=== PATIENT | female | born 1985 | race Caucasian/White ===

== ENCOUNTER 2017-03-02 04:25 | Inpatient (IN) | payer OTHER ==
[2017-03-02] MEDS ORDERED: OXYTOCIN 10 UNIT/ML 1 ML VIAL IM PRN (04:40)
[2017-03-02] MEDS ORDERED: LIDOCAINE 1% (PF) 10 MG/ML (30 ML SDV) SQ PRN (04:40)
[2017-03-02] MEDS ORDERED: METHYLERGONOVINE 0.2 MG/ML 1 ML AMP IM PRN (04:40)
[2017-03-02] MEDS ORDERED: CARBOPROST TROMETHAMINE 250 MCG/ML 1 ML AMP IM PRN (04:40)
[2017-03-02] MEDS ORDERED: TERBUTALINE 1 MG/ML VIAL SQ PRN (04:40)
[2017-03-02] MEDS ORDERED: LACTATED RINGERS 1,000 ML IV SCH (04:45)
[2017-03-02] MEDS ORDERED: diphenhydrAMINE 25 MG CAP PO PRN (05:04)
[2017-03-02] MEDS ORDERED: diphenhydrAMINE 50 MG/ML 1 ML VIAL IVP PRN (05:04)
[2017-03-02] MEDS ORDERED: BENZOCAINE SPRAY 57GM TOPICAL PRN (05:04)
[2017-03-02] MEDS ORDERED: ZOLPIDEM 5 MG TAB PO PRN (05:04)
[2017-03-02] MEDS ORDERED: HYDROCORTISONE 2.5% RECTAL CREAM 30 GM TUBE RECTAL PRN (05:04)
[2017-03-02] MEDS ORDERED: Acetaminophen-Codeine 300-30mg TAB PO PRN ×2 (05:04)
[2017-03-02] MEDS ORDERED: WITCH HAZEL 1 EACH MED..PAD TOPICAL PRN (05:04)
[2017-03-02] MEDS ORDERED: LANOLIN CREAM 5 GM TUBE TOPICAL PRN (05:04)
[2017-03-02] MEDS ORDERED: BISACODYL 10 MG SUPP RECTAL PRN (05:04)
[2017-03-02] MEDS ORDERED: SIMETHICONE 80 MG CHEWABLE PO PRN (05:04)
[2017-03-02 05:08] LABS: Basophils # (A) 0.1 k/uL (0-0.2); Basophils % (A) 0 %; CH 28.1; CHCM 31.5; Eosinophils # (A) 0.1 k/uL (0-0.7); Eosinophils % (A) 1 %; HCT 34.8 % (34.0-46.0); HGB 10.9 gm/dL (11.4-16.0); Hypochromasia Slight; Luc # (Auto) 0.39; Luc % (Auto) 2; Lymphocytes # (A) 2.9 k/uL (1.0-4.8); Lymphocytes % (A) 15 %; MCH 28.1 pg (25.0-35.0); MCHC 31.4 g/dL (31.0-37.0); MCV 89.6 fL (80.0-100.0); Mean Platelet Volume 7.7; Monocytes # (A) 0.5 k/uL (0-1.0); Monocytes % (A) 3 %; Neutrophils # (A) 14.9 k/uL (1.3-7.7); Neutrophils % (A) 79 %; RBC 3.88 m/uL (3.80-5.40); RDW 15.8 % (11.5-15.5); WBC 18.9 k/uL (3.8-10.6); WBC (Perox) 19.59
--- NOTE | 2017-03-02 05:14 | P.HPOB ---
History of Present Illness H&P Date: 03/02/17 Chief Complaint: Contractions, no care This patient is a 32-year-old 10 para 9 female with unknown last menstrual period and unknown gestational age who is transferred from [facility] complaints of and contractions. I was contacted by the emergency physician at [facility] stating that the patient presented with complaints of and contractions. Patient states to me that she has not had any care and "did not know she was ". This is her 10th and her other pregnancies were all vaginal deliveries except the last one which she said she had a which sounds like for breech presentation. Patient denies any significant past medical history other than tobacco use. Review of Systems Constitutional: Denies chills, Denies fever Ears, nose, mouth and throat: Denies headache, Denies sore throat Cardiovascular: Denies chest pain, Denies shortness of breath Respiratory: Denies cough Gastrointestinal: Denies abdominal pain, Denies diarrhea, Denies nausea, Denies vomiting Genitourinary: Reports Menstruation: Reports amenorrhea Musculoskeletal: Denies myalgias Past Medical History Past Medical History: No Reported History Additional Past Medical History / Comment(s): She states she's had 8 spontaneous vaginal deliveries and her most recent she had a History of Any Multi-Drug Resistant Organisms: None Reported Past Surgical History: Section Past Anesthesia/Blood Transfusion Reactions: No Reported Reaction Past Psychological History: No Psychological Hx Reported Smoking Status: Current every day smoker Past Alcohol Use History: None Reported Past Drug Use History: None Reported Medications and Allergies Allergies Allergy/AdvReac Type Severity Reaction Status Date / Time codeine Allergy Unknown Verified 06/10/15 14:23 Exam - Vital Signs Vital signs: Intake and Output 03/01/17 03/01/17 03/02/17 14:59 22:59 06:59 Other: Weight 81.647 kg Patient Weight 03/02/17 06:59 Weight 81.647 kg - OBG Physical Exam Abdomen: bowel sounds normal, no diffuse tenderness, no bruit present, no guarding noted, no hepatomegaly, no splenomegaly, no mass Vulva: both: normal Vagina: normal moisture, no discharge Cervix: Cervix is completely dilated with a vertex presenting part. Uterus: enlarged (Fundal height approximately 34 weeks' size) Assessment and Plan (1) No care in current in third trimester Narrative/Plan: This is a 32-year-old 10 para 9 female unknown gestational age and advanced active labor. His had a previous section for what appears to be breech. heart tones are reassuring at this time. It is to check a panel, urine drug screen, and anticipate vaginal delivery soon. We did call the nurse senior graphic designer and mercerizer machine operator in for delivery due to unknown gestational age. Status: Acute (2) Previous delivery affecting Status: Acute
[2017-03-02] MEDS ORDERED: OXYTOCIN 20 UNITS/1000 ML NS 1,000 ML IV SCH (05:15)
--- NOTE | 2017-03-02 05:16 | P.PROBDLV ---
Vaginal Delivery Note - . Vaginal Delivery Note: Normal spontaneous vaginal delivery viable female infant Apgars 8 and 9 delivery time is 0442 hours (vaginal after section). Please see dictated H&P for intimate details of this patient's admission. Brief summary is a pleasant 32-year-old 10 para 9 female known gestational age admitted from another hospital in advanced active labor. Patient's complete dilated on admission. It to the perineum. Posterior perineum was supported and we have controlled delivery of 's head straight occiput posterior. Mouth and nares are bulb suctioned. There is no evidence of a nuchal cord. We did have spontaneous delivery of the shoulders and rest this infant's body without any effort. This is a vigorous viable female infant Apgars are 8 and 9. Infant has spontaneous respirations and good cry and grossly appears normal. It is probably close to near term. After delivery of the infant the umbilical cords doubly clamped and cut. Placenta spontaneously delivered intact. Inspection of perineum shows a first-degree small laceration I put a interrupted [id number] 3-0 Vicryl suture and. Good reapproximation is noted. Estimated blood loss is 100 mL. There are no complications. All counts correct 3.
[2017-03-02 05:19] LABS: Appearance,Urine Cloudy (Clear); Bacteria,Urine Many /hpf; Bilirubin,Urine Negative (Negative); Glucose,Urine (UA) Negative (Negative); Ketones,Urine 1+ (Negative); Leukocyte Esterase,Urine Large (Negative); Mucus,Urine Many /hpf; Nitrite,Urine Positive (Negative); Protein,Urine 1+ (Negative); RBC,Urine 21 /hpf (0-5); Specific Gravity,Urine 1.015 (1.001-1.035); UA Billing (MACRO vs. MICRO) MICRO; Urobilinogen,Urine <2.0 mg/dL (<2.0); WBC,Urine >182 /hpf (0-5)
[2017-03-02 05:23] LABS: Glucose 125 mg/dL (74-99)
[2017-03-02 05:55] LABS: Hepatitis B Surface Ag Index 0.06
[2017-03-02] MEDS: IBUPROFEN 600 MG TAB PO PRN ×3 (06:27→21:28)
[2017-03-02] MEDS: SENNOSIDES-DOCUSATE SODIUM 1 EACH TAB PO SCH ×2 (08:48→19:28)
[2017-03-02] MEDS: ACETAMINOPHEN TAB 325 MG TAB PO PRN ×2 (08:49→19:28)
[2017-03-02 14:28] VITALS: RESP 16
[2017-03-02] MEDS ORDERED: HYDROcodone/APAP 5-325MG 1 EACH TAB PO PRN ×2 (21:33)
[2017-03-03] MEDS: IBUPROFEN 600 MG TAB PO PRN (06:27)
[2017-03-03 08:22] VITALS: BP 118/79; PULSE 71; TEMP 98
[2017-03-05 04:24] LABS: HIV-1/HIV-2 Ab Screen NONREAC (NON REAC)
--- NOTE | 2017-03-14 10:01 | P.DS ---
Providers Date of admission: 03/02/17 04:34 Expected date of discharge: 03/03/17 Attending physician: Sebastian Diaz Primary care physician: Sebastian Diaz [facility] Course: Shanice did very well . On day 1 she requests discharged home. She was where the baby would not be ready to go home for several days. Her vital signs were stable and she was afebrile. Heart was regular, lungs were clear, extremities were without pain. Prescriptions were provided as needed. Her abdomen was noted to be soft uterus is firm and lochia was reported to be light. We'll plan discharged home today she'll follow up with Dr. 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 All other questions were answered for her prior to her discharge and she is stable for discharge at this time. Patient Condition at Discharge: Good Plan - Discharge Summary New Discharge Prescriptions: New HYDROcodone/APAP 5-325MG [[place] 5-325] 1 tab PO Q4HR PRN #30 tab PRN Reason: Pain Ibuprofen [Motrin] 600 mg PO Q6HR PRN #30 tab PRN Reason: Pain No Action Ciprofloxacin HCl [Cipro] 500 mg PO Q12HR #14 tablet Discharge Medication List Ciprofloxacin HCl [Cipro] 500 mg PO Q12HR #14 tablet 06/10/15 [Rx] HYDROcodone/APAP 5-325MG [[place] 5-325] 1 tab PO Q4HR PRN #30 tab 03/03/17 [Rx] Ibuprofen [Motrin] 600 mg PO Q6HR PRN #30 tab 03/03/17 [Rx] Follow up Appointment(s)/Referral(s): Johnson Joshi DO [Doctor of Osteopathic Medicine] - As Needed Sebastian Diaz MD [Primary Care Provider] - 6 Weeks Activity/Diet/Wound Care/Special Instructions: Shanice is doing very well day 1. She is requesting discharge home today. Her vital signs are stable and afebrile. Heart regular, lungs clear, extremity without pain. All questions are answered for her prior to discharge. Prescriptions for Troy and Motrin are provided at her request. She will follow up with Dr. Diaz in 6 weeks. Otherwise she have any other issue she will notify our office. Discharge instructions thoroughly reviewed. Stable for discharge this time. Discharge Disposition: HOME SELF-CARE
== END 2017-03-03 13:00 | disposition home or self-care (01) | DRG 775 ==
LOC: FBPOP 04:25 → 4FBP 04:34
PROVIDERS: ADMIT Obstetrics & Gynecology; ATTEND Obstetrics & Gynecology
PROC: 10E0XZZ Delivery of Products of Conception, External Approach (ICD-10-PCS; principal; 2017-03-02)
DX: O34.211 Maternal care for low transverse scar from previous cesarean delivery (principal); F17.200 Nicotine dependence, unspecified, uncomplicated; O99.334 Smoking (tobacco) complicating childbirth; Z37.0 Single live birth; Z3A.00 Weeks of gestation of pregnancy not specified
CPT/HCPCS: 80306; 81001; 82947; 85025; 86762; 86850; 86900; 86901; 87340; 87389; 88307

== ENCOUNTER 2018-04-13 15:12 | Emergency (ER) | payer OTHER ==
--- NOTE | 2018-04-13 15:27 | ED ---
General Adult HPI - General Stated complaint: Complications Time Seen by Provider: 04/13/18 15:25 - History of Present Illness Initial comments: Distal is a 33-year-old G12P(10)01(10) female currently who presents to the emergency department for evaluation of abdominal discomfort. Patient reports that she gave one year ago, she had intermittent periods after that but was told that due to her depression, anxiety and medication she may not have regular periods so she had not ever checked a test. She states that she realized 3 weeks ago that she had not had a period since December at which time she did take a test. Patient states she took one test was negative and a week later took another which was positive. She has not established any OB care. Patient reports that she has been working every day and not able to follow up with OB yet. She states that yesterday she noticed some leakage of clear fluid from her vagina, she thought that this was just related to the discharge. She reports that throughout the day today she's had significant pressure in her lower abdomen. She reports that she 's been feeling like she needs to urinate but can't. She reports today she was at work when she began feeling pressure in her abdomen. She then had severe stabbing pain that caused her to double over. At that time 911 was called for transfer to the ER. She reports she still has some mild lower abdominal pressure but no significant pain upon initial evaluation. - Related Data Previous Rx's Medication Instructions Recorded Ciprofloxacin HCl [Cipro] 500 mg PO Q12HR #14 tablet 06/10/15 HYDROcodone/APAP 5-325MG [[place] 1 tab PO Q4HR PRN #30 tab 03/03/17 5-325] Ibuprofen [Motrin] 600 mg PO Q6HR PRN #30 tab 03/03/17 Allergies Allergy/AdvReac Type Severity Reaction Status Date / Time codeine Allergy Rash/Hives Verified 04/13/18 15:36 Review of Systems ROS Statement: Those systems with pertinent positive or pertinent negative responses have been documented in the HPI. ROS Other: All systems not noted in ROS Statement are negative. Constitutional: Denies: fever Eyes: Denies: vision change ENT: Denies: throat pain Respiratory: Denies: cough Cardiovascular: Denies: chest pain Endocrine: Denies: fatigue Gastrointestinal: Reports: abdominal pain, constipation (Last bowel movement. 5 days ago). Denies: nausea, vomiting, diarrhea Genitourinary: Reports: urgency, frequency, discharge, abnormal menses. Denies : dysuria Musculoskeletal: Denies: back pain Skin: Denies: rash Neurological: Denies: headache Psychiatric: Reports: anxiety, depression Hematological/Lymphatic: Denies: easy bleeding, easy bruising Past Medical History Past Medical History: No Reported History Additional Past Medical History / Comment(s): She states she's had 8 spontaneous vaginal deliveries and her most recent she had a History of Any Multi-Drug Resistant Organisms: None Reported Past Surgical History: Section Past Anesthesia/Blood Transfusion Reactions: No Reported Reaction Past Psychological History: No Psychological Hx Reported Smoking Status: Current every day smoker Past Alcohol Use History: None Reported Past Drug Use History: None Reported - Past Family History Mother Family Medical History: No Reported History General Exam Limitations: no limitations General appearance: alert, in no apparent distress, other (Gravid abdomen) Head exam: Present: atraumatic, normocephalic Eye exam: Present: normal appearance, PERRL ENT exam: Present: normal exam Neck exam: Present: normal inspection Respiratory exam: Absent: respiratory distress Cardiovascular Exam: Present: regular rate GI/Abdominal exam: Present: other (Gravid abdomen, uterus palpable above the umbilicus) Rectal exam: Present: deferred Extremities exam: Present: full ROM, normal capillary refill Neurological exam: Present: alert, oriented X3 Skin exam: Present: warm, dry Course Vital Signs 04/13/18 15:31 Temperature 98.1 F Pulse Rate 83 Respiratory 16 Rate Blood Pressure 114/64 O2 Sat by Pulse 100 Oximetry Medical Decision Making - Medical Decision Making The patient was seen and evaluated, history was obtained from the patient and review of medical record This is the patient's 11 , her last resulted in her giving without being aware she was prior to delivery Patient presents today with lower abdominal pain, on physical exam she has a gravid abdomen. Maternal medicine was paged A bedside ultrasound performed by myself revealed a fetus likely in the late second early third trimester. Fetus was noted to be in the transverse lie. Head was measuring 12 cm on bedside ultrasound. At this time I feel the patient requires further evaluation by maternal medicine on the OB floor. Maternal medicine nurses at the bedside agree. At this time the patient has no urge to push, no contractions. Maternal medicine nurses stated that they will defer vaginal exam until she is on the OB floor. Patient was placed in a wheelchair and transferred to the OB floor. Disposition Clinical Impression: , No care in current in third trimester, Previous delivery affecting Disposition: OTHER INSTITUTION NOT DEFINED Is patient prescribed a controlled substance at d/c from ED?: No Referrals: None,Stated [Primary Care Provider] - 1-2 days - Out of Hospital Transfer - Req. Specs Out of Hospital Transfer - Requested Specifics: Other Non-Acute (Patient transferred to Labor and Delivery in this hospital)
[2018-04-13 15:36] VITALS: BP 114/64; PULSE 83; RESP 16; TEMP 98.1
== END 2018-04-13 15:45 | disposition other institution (70) ==
LOC: EC 15:12
DX: O99.89 Other specified diseases and conditions complicating pregnancy, childbirth and the puerperium (principal); R10.30 Lower abdominal pain, unspecified; O99.333 Smoking (tobacco) complicating pregnancy, third trimester; F17.200 Nicotine dependence, unspecified, uncomplicated; Z3A.00 Weeks of gestation of pregnancy not specified; Z88.5 Allergy status to narcotic agent
CPT/HCPCS: 99284

== ENCOUNTER 2018-04-13 15:47 | Outpatient (CLI) | payer OTHER ==
[2018-04-13 16:57] LABS: Basophils # (A) 0.1 k/uL (0-0.2); Basophils % (A) 0 %; Eosinophils # (A) 0.2 k/uL (0-0.7); Eosinophils % (A) 1 %; HCT 29.4 % (34.0-46.0); HGB 9.7 gm/dL (11.4-16.0); Lymphocytes # (A) 2.5 k/uL (1.0-4.8); Lymphocytes % (A) 17 %; MCH 28.5 pg (25.0-35.0); MCHC 32.9 g/dL (31.0-37.0); MCV 86.8 fL (80.0-100.0); Mean Platelet Volume 7.4; Monocytes # (A) 0.7 k/uL (0-1.0); Monocytes % (A) 4 %; Neutrophils # (A) 11.5 k/uL (1.3-7.7); Neutrophils % (A) 76 %; Platelet Count 499 k/uL (150-450); RBC 3.39 m/uL (3.80-5.40); RDW 15.7 % (11.5-15.5); WBC 15.1 k/uL (3.8-10.6)
[2018-04-13] MEDS ORDERED: BETAMET ACET-BETAMETH SOD PHOS 6 MG/ML VIAL IM SCH (17:00)
[2018-04-13 17:02] LABS: ALT 28 U/L (9-52); AST 18 U/L (14-36); Blood Urea Nitrogen 8 mg/dL (7-17); Glucose 90 mg/dL (74-99); LDH 416 U/L (313-618); Uric Acid 5.5 mg/dL (3.7-7.4)
[2018-04-13 17:07] LABS: Appearance,Urine Cloudy (Clear); Bacteria,Urine Many /hpf; Bilirubin,Urine Negative (Negative); Blood,Urine Negative (Negative); Budding Yeast,Urine Rare /hpf; Color,Urine Yellow; Glucose,Urine (UA) Negative (Negative); Ketones,Urine Trace (Negative); Leukocyte Esterase,Urine Large (Negative); Mucus,Urine Many /hpf; Nitrite,Urine Negative (Negative); Protein,Urine 1+ (Negative); RBC,Urine 3 /hpf (0-5); Specific Gravity,Urine 1.016 (1.001-1.035); Squamous Epithelial Cell,Urine 12 /hpf (0-4); WBC,Urine >182 /hpf (0-5)
[2018-04-13] MEDS: LACTATED RINGERS 1,000 ML IV SCH ×2 (17:12→18:16)
[2018-04-13 17:19] LABS: Amphetamine Screen,Urine Not Detected (NotDetected); Barbiturate Screen,Urine Not Detected (NotDetected); Benzodiazepines Screen,Urine Not Detected (NotDetected); Cocaine Screen,Urine Not Detected (NotDetected); Methadone Screen, Urine Not Detected (NotDetected); Opiate Screen,Urine Not Detected (NotDetected); Oxycodone Screen, Urine Not Detected (NotDetected); Phencyclidine Screen,Urine Not Detected (NotDetected); Tricyclic Antidepressant,Urine Not Detected (NotDetected); Urn Cannabinoid Scrn Not Detected (NotDetected)
--- NOTE | 2018-04-13 18:37 | P.HPOB ---
History of Present Illness H&P Date: 04/13/18 Chief Complaint: Abdominal pain, "I did not know I was " This is a 33-year-old white female 12 para 06/24/2010 EDC unknown, sonographic due date today 06/01/2018 at 32-6/7 weeks' gestation. Patient states she has been having unusual abdominal pain over the past several days. 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 She denies fluid leakage or vaginal bleeding. She denies dysuria, hematuria, nausea vomiting, diarrhea. She states she has been having constipation. ALLERGIES include codeine to which she reports fever and hives. Current medications Adderall 30 mg daily, ran a run daily. Past medical history significant for depression and ADHD. Past surgical history significant for section 2014 at 36 weeks gestation for preeclampsia. Social history is significant for one half pack per day tobacco since age 14, patient denies alcohol or drug use. She states she is , here is Claudio. Family history is essentially unremarkable, patient states all of her previous children were healthy. She does not however have custody of any of her children. On exam this is a pleasant white female, 5 foot 4 inches, 195 pounds, vital signs are stable including blood pressure 127/71, pulse 90, 98% O2 sat, temperature 98.1. The general physical exam reveals a pierced nose as well as the shoulder tattoo. Abdomen is soft and nontender. Bedside ultrasound reveals a montes breech vertex with a fundal placenta, normal amniotic fluid index, LENORE 12.6cm, EFWt: 2172 g or 4 lbs. 13 oz., heart rate 165. Reactive NST , baseline 140s with accelerations. Chest is clear in all stone, cardiac exam reveals regular rate and rhythm. Extremities reveal no edema. She has normal reflexes 2+. Cervix is soft, approximate 50% effaced or 2 cm long, 1-1/2 cm dilation the internal os, -2 station, I am feeling a firm presenting part clinically consistent with vertex. Labs include urinalysis revealing trace ketones, +1 protein, 182 WBCs, no nitrates, specimen appears cloudy and to my eye contaminated. WBCs 15, remaining labs within normal limits, blood type O positive, antibody screen negative, remaining lab panel pending. Impression: Patient presents with no care, unaware that she was , at approximately 32-6/7 weeks by sonogram today with a breech montes. She is having irregular mild uterine contractions. Betamethasone has been given IM 1. All labs been drawn. Plan: Continue IV hydration. I've agreed to see the patient in the office if she calls the office on Sunday morning for an appointment. At this point I am reminding her no intercourse, to begin a folic acid vitamin daily, and at this time no work. Increase oral hydration at home. Urine culture is sent. Return to the hospital tomorrow for second betamethasone injection. Review of Systems Constitutional: Reports as per HPI Past Medical History Past Medical History: No Reported History Additional Past Medical History / Comment(s): She states she's had 8 spontaneous vaginal deliveries, she had a [id number] with a full term vaginal delivery tofoll. History of Any Multi-Drug Resistant Organisms: None Reported Past Surgical History: Section Past Anesthesia/Blood Transfusion Reactions: No Reported Reaction Past Psychological History: ADD/ADHD, Anxiety Smoking Status: Current every day smoker - Past Family History Mother Family Medical History: No Reported History Medications and Allergies Home Medications Medication Instructions Recorded Confirmed Type Ciprofloxacin HCl [Cipro] 500 mg PO Q12HR #14 tablet 06/10/15 Rx HYDROcodone/APAP 5-325MG [[place] 1 tab PO Q4HR PRN #30 tab 03/03/17 Rx 5-325] Ibuprofen [Motrin] 600 mg PO Q6HR PRN #30 tab 03/03/17 Rx Allergies Allergy/AdvReac Type Severity Reaction Status Date / Time codeine Allergy Rash/Hives Verified 04/13/18 15:36 Exam Intake and Output 04/13/18 04/13/18 04/13/18 06:59 14:59 22:59 Other: Weight 88.451 kg See dictation please Results Result Diagrams: 04/13/18 16:23 04/13/18 16:28 Abnormal Lab Results - Last 24 Hours (Table) 04/13/18 04/13/18 Range/Units 15:50 16:23 WBC 15.1 H (3.8-10.6) k/uL RBC 3.39 L (3.80-5.40) m/uL Hgb 9.7 L (11.4-16.0) gm/dL Hct 29.4 L (34.0-46.0) % RDW 15.7 H (11.5-15.5) % Plt Count 499 H (150-450) k/uL Neutrophils # 11.5 H (1.3-7.7) k/uL Urine Appearance Cloudy H (Clear) Urine Protein 1+ H (Negative) Urine Ketones Trace H (Negative) Ur Leukocyte Esterase Large H (Negative) Urine WBC >182 H (0-5) /hpf Ur Squamous Epith Cells 12 H (0-4) /hpf Urine Bacteria Many H (None) /hpf Urine Mucus Many H (None) /hpf Urine Yeast (Budding) Rare H (None) /hpf Assessment and Plan Plan: Increase oral fluids at home, no further working until seen in the office on Sunday morning, begin a vitamin with Folic acid daily, stop smoking. Return to the hospital tomorrow for second betamethasone injection. Time with Patient: Greater than 30
--- NOTE | 2018-04-13 20:09 | US ---
EXAMINATION TYPE: US OB >= 14 wk fetus DATE OF EXAM: 04/13/2018 COMPARISON: None CLINICAL HISTORY: unknown gestation. No care, unknown dates TECHNIQUE: Transvaginal (TV) and Transabdominal (TA) GESTATIONAL AGE / DATING Physician Established: Not yet established Dates by LMP: LMP unknown Dates by First Scan: No previous this is first scan Dates by Current Scan: (32 weeks/6 days) EDC: 06/02/2018 SURVEY IUP: Single PLACENTA: Fundal PREVIA: No Previa LENORE: 12.6 cm Normal CERVICAL LENGTH (transvaginal: norm> 2.5cm): 2.8 cm (Supplemental transvaginal imaging performed to verify cervical length.) BIOMETRY PRESENTATION: Breech LIE: Longitudinal BPD: 8.2 cm 32 weeks / 6 days HC: 30.97 cm 34 weeks / 4 days AC: 29.82 cm 33 weeks / 6 days FL: 6.22 cm 32 weeks / 2 days ESTIMATED WEIGHT IN GRAMS: 2172 grams ESTIMATED WEIGHT IN LBS/OZ: 4 lbs. 73 oz. HC/AC: 1.04 Normal FL/AC: 20.85 Normal HEART RATE: 165 bpm RHYTHM: Normal Viable IUP with an BERTHA of 06/02/2018 by this exam. IMPRESSION: Viable intrauterine gestation consistent by Sarva calculation with a 32 week 6 day gestation +/- 1 week expected date of confinement approximately 06/12/2018. heart rate of 165 bpm. Normal rhythm. Follow-up study recommended. MTDD
[2018-04-13 23:54] LABS: HIV AB P24 Non-Reactive (Non-Reactive); HIV P24 AG Non-Reactive (Non-Reactive)
[2018-04-15 13:20] LABS: C. trachomatis,PCR Negative (Neg,Equiv); Chlamydia trachomatis Source Urine; N. gonorrhoeae,PCR Negative (Neg,Equiv); Neisseria Source Urine
== END 2018-04-13 19:10 | disposition home or self-care (01) ==
LOC: FBPOP 15:47
PROVIDERS: ATTEND Obstetrics & Gynecology
DX: O26.893 Other specified pregnancy related conditions, third trimester (principal); R10.9 Unspecified abdominal pain; O99.333 Smoking (tobacco) complicating pregnancy, third trimester; Z3A.32 32 weeks gestation of pregnancy
CPT/HCPCS: 59025; 99214; 96361; 96365; 96372; 84112; 86900; 86901; 86762; 82565; 83615; 82947; 84450; 84460; 84520; 84550; 85025; 86850; 87340; 81001; 87491; 87591; 86780; 80306; 87086; 87390; 76805; 76817; J0702; 87077; 87186

== ENCOUNTER 2018-05-07 21:20 | Outpatient (CLI) | payer OTHER ==
[2018-05-07 23:15] VITALS: BP 129/77; PULSE 100; RESP 20
--- NOTE | 2018-05-31 08:27 | P.MSEPDOC ---
Presenting Problems - Arrival Data Date of Arrival on Unit: 05/07/18 Time of Arrival on Unit: 21:26 Mode of Transport: Wheelchair - Complaint OB-Reason for Admission/Chief Complaint: Possible Onset of Labor Medical History - Information : 12 Para: 10 Number of Living Children: 10 - Gestational Age Gestational Age by BERTHA (wks/days): 36 Weeks and 2 Days - History Complications: Smoker Review of Systems - Review of Systems Constitutional: No problems Breast: No problems ENT: No problems Cardiovascular: No problems Respiratory: No problems Gastrointestinal: No problems Genitourinary: No problems Musculoskeletal: No problems Neurological: No problems Skin: No problems Vital Signs - Pulse Right Supine Brachial Pulse Rate: 100 - Respirations Respiratory Rate: 20 Oxygen Delivery Method: Room Air - Blood Pressure Right Arm Supine Blood Pressure: 129/77 Blood Pressure Mean: 94 Blood Pressure Source: Automatic Cuff Medical Screen Scoring (Pre) - Cervical Exam Dilation: 1-3 cm = 1 Effacement: More than 50% = 2 Membranes: Intact - Uterine Contractions Frequency: > or = 36 weeks =2 Duration: > 40 seconds = 2 - Maternal Vital Signs Maternal Blood Pressure: N/A Signs of Preeclampsia: N/A - Pain Assessment Pain Location and Character: Medial, Abdomen Pain Description: Cramping Pain Frequency: Intermittent Pain Behavior: None Exhibited Pain Aggravating Factors: Contractions - Assessment Baseline FHR: 145 Heart Rate - NICHD Category: Category I (Normal) = 0 NST: Reactive - Total Score Total Score (Pre): 7 Physician Notification (Pre) - Physician Notified Physician Notified Date: 05/07/18 Physician Notified Time: 22:45 Physician/Practitioner Notifed:: Dr Sandhu Spoke With: Dr Sandhu - Notification Comment Comment: Dr Sandhu saw patient at bedside, performed vag exam and gave discharge instructions. Pt has appt tomorrow at 1400 with her. Disposition - Disposition OB Disposition: Physician follow up in office Discharge Date: 05/07/18 Discharge Time: 22:50 I agree with the RN Medical Screening Exam: Yes Risk & Benefit of care provided described in d/c instruction: Yes Diagnosis: FALSE LABOR BEFORE 37 COMPLETED WEEKS OF GEST, THIRD TRI Additional Diagnoses: O47.03
== END 2018-05-07 22:50 | disposition home or self-care (01) ==
LOC: FBPOP 21:20
PROVIDERS: ATTEND Obstetrics & Gynecology
DX: O47.03 False labor before 37 completed weeks of gestation, third trimester (principal); Z3A.36 36 weeks gestation of pregnancy
CPT/HCPCS: 59025; 99213

== ENCOUNTER 2018-05-15 21:35 | Inpatient (IN) | payer OTHER ==
[2018-05-15] MEDS: LACTATED RINGERS 1,000 ML IV SCH ×3 (22:29→23:48)
[2018-05-15] MEDS ORDERED: LIDOCAINE 1% (PF) 10 MG/ML (30 ML SDV) SQ PRN (22:47)
[2018-05-15] MEDS ORDERED: OXYTOCIN 10 UNIT/ML 1 ML VIAL IM PRN (22:47)
[2018-05-15] MEDS ORDERED: TERBUTALINE 1 MG/ML VIAL SQ PRN (22:47)
[2018-05-15] MEDS ORDERED: CARBOPROST TROMETHAMINE 250 MCG/ML 1 ML AMP IM PRN (22:47)
[2018-05-15] MEDS ORDERED: METHYLERGONOVINE 0.2 MG/ML 1 ML AMP IM PRN (22:47)
[2018-05-15 23:07] LABS: Anisocytosis Slight; Basophils # (A) 0.1 k/uL (0-0.2); Basophils % (A) 1 %; Eosinophils # (A) 0.2 k/uL (0-0.7); Eosinophils % (A) 2 %; HCT 32.3 % (34.0-46.0); HGB 10.6 gm/dL (11.4-16.0); Lymphocytes # (A) 2.9 k/uL (1.0-4.8); Lymphocytes % (A) 17 %; MCH 28.6 pg (25.0-35.0); MCHC 32.7 g/dL (31.0-37.0); MCV 87.4 fL (80.0-100.0); Mean Platelet Volume 7.5; Monocytes # (A) 0.8 k/uL (0-1.0); Monocytes % (A) 5 %; Neutrophils # (A) 12.4 k/uL (1.3-7.7); Neutrophils % (A) 75 %; Platelet Count 509 k/uL (150-450); RBC 3.69 m/uL (3.80-5.40); RDW 16.2 % (11.5-15.5); WBC 16.6 k/uL (3.8-10.6)
[2018-05-15] MEDS ORDERED: ROPIVACAINE 100 MG, fentaNYL (PF) 200 MCG in SODIUM CHLORIDE 0.9% 76 ML EPIDURAL ONE (23:35)
--- NOTE | 2018-05-15 23:52 | P.HPOB ---
History of Present Illness H&P Date: 05/15/18 Chief Complaint: 37-3/7 weeks, active labor, previous with successful The patient is a 33-year-old 11 para 0 10 0 10 with reportedly 10 deliveries at approximately 36+ weeks. One delivery was a section after which time she has had a successful vaginal . Her has been complicated by very late care beginning at approximately 34 weeks of gestation. She does have a history of ADD for which she takes Adderall. She also has expressed the desire for tubal ligation and signed consent just recently. Group B strep status is negative. On labor and delivery, she was noted to have spontaneous relatively deep and somewhat prolonged variable decelerations which returned to baseline with good variability between. Currently, all signs are reassuring. Obstetrical history: 11 para 0 10 0 10 with reportedly 10 roughly 36 week deliveries. She has had 8 normal vaginal deliveries, the last of which followed her only , a successful . Current statistics are listed in history present illness. EDC of 06/02/2018 was established by a 34 week ultrasound. Laboratory workup demonstrates a blood type of O+ with a negative antibody screen. Rubella status is immune. The remainder of the laboratory workup was within normal limits aside from a urinary tract infection which was treated. One hour Glucola was not completed and group B strep status is negative. Gynecologic history: Apparently unremarkable with no evidence of history of STDs. Review of Systems Review of systems is confined to history of present illness. Past Medical History Past Medical History: No Reported History Additional Past Medical History / Comment(s): She states she's had 8 spontaneous vaginal deliveries, she had a [id number] with a full term vaginal delivery tofoll. History of Any Multi-Drug Resistant Organisms: None Reported Past Surgical History: Section Past Anesthesia/Blood Transfusion Reactions: No Reported Reaction Smoking Status: Current every day smoker - Past Family History Mother Family Medical History: No Reported History Medications and Allergies Home Medications Medication Instructions Recorded Confirmed Type Pnv No.95/Ferrous Fum/Folic AC 1 each PO DAILY 05/07/18 05/15/18 History [ Multivitamin Tablet] Allergies Allergy/AdvReac Type Severity Reaction Status Date / Time codeine Allergy Rash/Hives Verified 05/15/18 21:44 Exam Vital Signs Temp Pulse Resp BP Pulse Ox 05/15/18 22:16 97.0 F L 102 H 16 130/70 100 Intake and Output 05/15/18 05/15/18 05/16/18 14:59 22:59 06:59 Other: Weight 88.451 kg In general, this is a well-developed, well-nourished white female in no acute distress is epidural catheter has been placed. Her heart has a regular rhythm and rate without murmur. Her lungs are clear to auscultation bilaterally in all stone. Her abdomen is gravid, nondistended, has normal active bowel sounds , is soft, nontender, and without any palpable masses aside from uterine fundus. Her extremities are without any cyanosis, clubbing, or significant edema and are nontender to palpation bilaterally. Digital cervical examination done traits or cervix to be 8 cm dilated, approximately 80-90% effaced, with the vertex in presentation at -2 station. During the cervical examination, cord was palpable adjacent to the head leading me to leave membranes intact and allow the patient to labor down and perhaps even push with the bag of water intact. Results Result Diagrams: 05/15/18 22:20 Abnormal Lab Results - Last 24 Hours (Table) 05/15/18 Range/Units 22:20 WBC 16.6 H (3.8-10.6) k/uL RBC 3.69 L (3.80-5.40) m/uL Hgb 10.6 L (11.4-16.0) gm/dL Hct 32.3 L (34.0-46.0) % RDW 16.2 H (11.5-15.5) % Plt Count 509 H (150-450) k/uL Neutrophils # 12.4 H (1.3-7.7) k/uL Assessment and Plan (1) Active labor at term Current Visit: Yes Status: Acute Code(s): TJJ3329 - SNOMED Code(s): 08219105 (2) Previous delivery affecting Current Visit: Yes Status: Acute Code(s): O34.219 - MATERNAL CARE FOR UNSP TYPE SCAR FROM PREVIOUS DEL SNOMED Code(s): 183010824 Plan: The current findings to represent a significant risk for potential cord prolapse. The operating room will be opened in anticipation of the possibility of emergency . I intend to leave the bag of water intact and allow the patient to labor down and perhaps even push with the bag of water intact as long as heart tones remain reassuring given the fact that she has had 8 previous normal vaginal deliveries. Very close maternal and surveillance will be continued. An epidural catheter has been placed for analgesia.
[2018-05-16 00:08] VITALS: BMI 33.5
[2018-05-16] MEDS ORDERED: OXYTOCIN 20 UNITS/1000 ML NS 1,000 ML IV SCH ×2 (01:15→02:15)
[2018-05-16] MEDS ORDERED: CITRIC ACID-SODIUM CITRATE 15 ML CUP PO ONE (01:19)
[2018-05-16] MEDS ORDERED: ceFAZolin 1,000 MG in DEXTROSE/WATER 1 50ML.BAG IVPB STA (01:26)
[2018-05-16] MEDS ORDERED: ONDANSETRON 4 MG/2 ML VIAL ONE (01:29)
[2018-05-16] MEDS ORDERED: ceFAZolin 1,000 MG VIAL ONE (01:29)
[2018-05-16] MEDS ORDERED: OXYTOCIN 10 UNIT/ML 1 ML VIAL ONE (01:29)
[2018-05-16] MEDS ORDERED: KETOROLAC 30 MG/ML 1 ML VIAL ONE (01:29)
[2018-05-16] MEDS ORDERED: MORPHINE SULFATE (PF) 0.3 MG/0.3 ML SYR ONE (01:29)
[2018-05-16] MEDS ORDERED: NALBUPHINE 10 MG/ML VIAL (10ML MDV) ONE (01:29)
[2018-05-16] MEDS ORDERED: diphenhydrAMINE 50 MG/ML 1 ML VIAL IVP PRN ×3 (01:54→02:11)
[2018-05-16] MEDS ORDERED: MORPHINE SULFATE 4 MG/ML SYRINGE IVP PRN (01:54)
[2018-05-16] MEDS ORDERED: NALOXONE 0.4 MG/ML 1 ML VIAL IV PRN ×2 (01:54→02:11)
[2018-05-16] MEDS ORDERED: ONDANSETRON 4 MG/2 ML VIAL IVP PRN (01:54)
[2018-05-16] MEDS ORDERED: ZOLPIDEM 5 MG TAB PO PRN (02:11)
[2018-05-16] MEDS ORDERED: SIMETHICONE 80 MG CHEWABLE PO PRN (02:11)
[2018-05-16] MEDS ORDERED: ACETAMINOPHEN TAB 325 MG TAB PO PRN (02:11)
[2018-05-16] MEDS ORDERED: diphenhydrAMINE 50 MG CAP PO PRN (02:11)
[2018-05-16] MEDS ORDERED: METOCLOPRAMIDE 5 MG/ML 2 ML VIAL IVP PRN (02:11)
[2018-05-16] MEDS ORDERED: diphenhydrAMINE 25 MG CAP PO PRN (02:11)
--- NOTE | 2018-05-16 02:28 | P.OP ---
Date of Procedure: 05/16/18 Preoperative Diagnosis: #1. 37-3/7 weeks, labor #2. Undesired fertility #3. Grand multiparity #4. intolerance of labor Postoperative Diagnosis: Same Procedure(s) Performed: #1. Repeat low transverse section #2. Intraoperative bilateral tubal occlusion with Filshie clips Anesthesia: epidural Surgeon: Min Mayo Machine Setter Automatic #1: Sebastian Diaz Estimated Blood Loss (ml): 400 IV fluids (ml): 1,400 Urine output (ml): 250 Pathology: other (Placenta) Condition: stable Disposition: floor Operative Findings: Preoperatively, the patient continued to have repetitive deep and prolonged decelerations into the 60s and 70s which recovered to good variability with accelerations. Given her grand multiparity, and despite the palpable umbilical cord adjacent to the baby's head and the membranes intact, we attempted to allow her to labor past the cord so that she could quickly pushed to a normal vaginal delivery. The cord however remained further in front of the head with repetitive decelerations and significant concern was taken for the potential for her significant poor heart tones if rupture of membranes happened spontaneously or otherwise or with any pushing. As result, the patient was taken to the operating room where she was delivered of a viable 6 lbs. 1 oz. baby boy with Apgars of 6 at 1 minute, 6 at 5 minutes, and 6 at 10 minutes. He was taken to the special care nursery for further evaluation. The exact gestational age of the is in some question as EDC was based upon a 34 week ultrasound. The uterus was noted to have an extremely thin lower uterine segment at the site of the previous section with the bladder scarred into it as well. There was a laceration of the uterine incision towards the cervix on the left angle which was safely closed without any evidence of bladder injury. The tubes and ovaries were otherwise normal. The placenta was delivered manually, intact, and grossly normal with a grossly normal three- vessel cord. Consent for tubal ligation had been previously obtained in the office and was verbally taken from the patient both during labor and during the procedure. A Filshie clip was placed across the entire thickness of the isthmic portion of each tube and firmly affixed. Description of Procedure: The patient was prepped and draped in usual fashion after epidural anesthesia was bolused by the anesthesiologist. A Pfannenstiel incision was made through pre-existing scar and extended into the abdominal cavity without difficulty. The bladder peritoneum was noted to be scarred relatively high and the lower uterine segment was extraordinarily thin at the site of a previous section creating a ridge between the upper and lower uterine segments. The bladder peritoneum was elevated, incised, and reflected distally. A 2 cm incision was made in the lower uterine segment just below the ridge to enter the uterus at which time clear fluid was noted. The incision was extended in both directions bluntly. The head was delivered up and through the incision where the nose and mouth were thoroughly suctioned. The remainder of the was delivered onto the field where the cord was doubly clamped, cut, and the infant passed for resuscitative measures with weight and Apgars as noted above. A segment of cord was then doubly clamped, cut, and set aside should cord gases become necessary. The placenta was delivered manually, intact , and grossly normal with a grossly normal three-vessel cord. The uterus was exteriorized and the interior cavity of the uterus swept of any remaining placental or membranous fragments. The margins of the incision were grasped with Alfaro clamps at which time the laceration at the left angle was noted. This was closed continuously with the remainder of the incision with minimal difficulty. The blood at the time of the beginning of the repair was blood-tinged and remained so following the procedure but much more likely from the depth of the head in the pelvis and pressing on the Millan bulb to deliver it. The incision was closed in a single running locking stitch of 0 chromic catgut from margin to margin. The area where the laceration was noted was reinforced with a single [id number]-[id number] stitch of 0 chromic catgut. After reaffirming consented for tubal ligation, a Filshie clip was placed across the isthmic portion of each fallopian tube and firmly affixed approximately 2 cm from the cornu on each side. The posterior cul-de-sac was suctioned with a guard and the uterus replaced within the abdominal cavity. The gutters were swept of any remaining blood, fluid, or clot. The incision was reexamined and found to be hemostatic. The parietal peritoneum and layer of muscles were loosely reapproximated with a xettby-rq-qguex stitch of 0 chromic catgut. The fascia was closed with a single running stitch of 0 Vicryl proceeding from one margin to the other. The subcutaneous tissues were irrigated, made hemostatic with the Bovie, and not reapproximated as there was less than 2 cm of depth. The skin was reapproximated with a running subcuticular stitch of 4-0 Vicryl from margin to margin. There were no complications. All sponge, instrument, and needle counts were correct. Estimated blood loss for the case is a roughly 400 mL. The patient tolerated the procedure well and proceeded to the recovery room in stable condition. Both mother and infant are resting comfortably in recovery of the remains and special care nursery for ongoing evaluation.
[2018-05-16] MEDS: LACTATED RINGERS 1,000 ML IV SCH ×2 (03:38→05:53)
[2018-05-16] MEDS: SENNOSIDES-DOCUSATE SODIUM 1 EACH TAB PO SCH ×2 (07:53→19:34)
[2018-05-16] MEDS: KETOROLAC 30 MG/ML 1 ML VIAL IVP PRN ×3 (07:56→21:19)
[2018-05-16] MEDS: HYDROcodone/APAP 7.5-325MG 1 EACH TAB PO PRN (19:33)
[2018-05-17] MEDS: HYDROcodone/APAP 7.5-325MG 1 EACH TAB PO PRN (02:09)
[2018-05-17] MEDS: KETOROLAC 30 MG/ML 1 ML VIAL IVP PRN (06:03)
[2018-05-17 06:10] LABS: Anisocytosis Slight; Basophils # (A) 0.1 k/uL (0-0.2); Basophils % (A) 0 %; Eosinophils # (A) 0.2 k/uL (0-0.7); Eosinophils % (A) 1 %; HCT 26.1 % (34.0-46.0); Lymphocytes # (A) 2.1 k/uL (1.0-4.8); Lymphocytes % (A) 13 %; MCV 87.6 fL (80.0-100.0); Mean Platelet Volume 7.3; Monocytes # (A) 0.8 k/uL (0-1.0); Monocytes % (A) 5 %; Neutrophils # (A) 13.3 k/uL (1.3-7.7); Neutrophils % (A) 80 %; Platelet Count 383 k/uL (150-450); RBC 2.98 m/uL (3.80-5.40); RDW 16.2 % (11.5-15.5); WBC 16.6 k/uL (3.8-10.6)
[2018-05-17 06:44] LABS: HGB 8.3 gm/dL (11.4-16.0)
--- NOTE | 2018-05-17 06:50 | P.PN ---
Progress Note - Text Progress Note Date: 05/17/18 33-year-old female status post section with Duramorph spinal. Patient doing well no complications. No motor/sensory deficits. No pruritus. VAS 2/ 10. Patient tolerating diet.
--- NOTE | 2018-05-17 07:32 | P.PN ---
Subjective Progress Note Date: 05/17/18 Principal diagnosis: Postoperative day #1 Slept well. Minimal pain. Moderate lochia rubra, no large clots Objective - Vital Signs Vital signs: Vital Signs Temp 97.6 F 05/17/18 00:00 Pulse 88 05/17/18 00:00 Resp 12 05/17/18 06:00 BP 123/63 05/17/18 00:00 Pulse Ox 97 05/17/18 00:00 Intake & Output 05/16/18 05/17/18 05/17/18 18:59 06:59 18:59 Output Total 100 Balance -100 Output: Urine 100 Other: # Voids 1 1 - Constitutional General appearance: Present: average body habitus, cooperative - EENT Eyes: Present: PERRLA ENT: Present: hearing grossly normal - Respiratory Respiratory: bilateral: CTA - Cardiovascular Rhythm: regular - Gastrointestinal Gastrointestinal Comment(s): Incision clean and dry, intact, Steri-Strips applied. Fundus firm, midline, symmetric, 18 week size, nontender General gastrointestinal: Present: normal bowel sounds - Integumentary Integumentary: Present: normal - Neurologic Neurologic: Present: CNII-XII intact - Musculoskeletal Musculoskeletal: Present: gait normal, strength equal bilaterally - Psychiatric Psychiatric: Present: A&O x's 3, appropriate affect - Labs CBC & Chem 7: 05/17/18 05:45 Labs: Abnormal Lab Results - Last 24 Hours (Table) 05/17/18 Range/Units 05:45 WBC 16.6 H (3.8-10.6) k/uL RBC 2.98 L (3.80-5.40) m/uL Hgb 8.3 L D (11.4-16.0) gm/dL Hct 26.1 L (34.0-46.0) % RDW 16.2 H (11.5-15.5) % Neutrophils # 13.3 H (1.3-7.7) k/uL Assessment and Plan Assessment: Postoperative day #1, doing well Plan: Continue postoperative care. Likely discharge home tomorrow. Time with Patient: Less than 30
[2018-05-17] MEDS: HYDROcodone/APAP 5-325MG 1 EACH TAB PO PRN ×3 (09:30→21:58)
[2018-05-17] MEDS: FERROUS SULFATE 325 MG TAB PO SCH (09:39)
[2018-05-17] MEDS: SENNOSIDES-DOCUSATE SODIUM 1 EACH TAB PO SCH (10:25)
[2018-05-17] MEDS: IBUPROFEN 600 MG TAB PO PRN ×2 (12:08→19:51)
[2018-05-18] MEDS: SENNOSIDES-DOCUSATE SODIUM 1 EACH TAB PO SCH ×2 (01:28→07:48)
[2018-05-18] MEDS: IBUPROFEN 600 MG TAB PO PRN (01:28)
[2018-05-18] MEDS: HYDROcodone/APAP 5-325MG 1 EACH TAB PO PRN (05:17)
[2018-05-18] MEDS: HYDROcodone/APAP 7.5-325MG 1 EACH TAB PO PRN ×2 (07:25→10:48)
[2018-05-18] MEDS: FERROUS SULFATE 325 MG TAB PO SCH (08:58)
[2018-05-18 10:49] VITALS: BP 107/68; PULSE 75; RESP 18; TEMP 97.5
--- NOTE | 2018-05-18 11:26 | P.DS ---
Providers Date of admission: 05/15/18 22:47 Expected date of discharge: 05/18/18 Attending physician: Geraldine Sandhu Primary care physician: Stated None - Discharge Diagnosis(es) (1) Active labor at term Current Visit: Yes Status: Acute (2) Family planning Current Visit: Yes Status: Acute (3) intolerance to labor, delivered, current hospitalization Current Visit: Yes Status: Acute (4) Previous delivery affecting Current Visit: Yes Status: Acute (5) S/P section Current Visit: Yes Status: Acute Hospital Course: This is a 33-year-old grand multiparous woman who presented at 37+ weeks gestation in active labor. On findings with advanced cervical dilation were concerning for possible umbilical cord preceding of the descending vertex. There was some nonreassuring status. This incision was therefore made to proceed with a repeat low transverse section. The patient was planning on tubal ligation and this was performed at the time of the repeat C- section with Filshie clips. Please see the operative report for complete details. The patient's postoperative course was entirely unremarkable. By postoperative day #1 she was ambulating and voiding without difficulty and tolerating a general diet. By postoperative day #2 she continued to do well. Vital signs were stable postoperative hemoglobin was normal and her incision appeared well healing. She was therefore discharged home with routine instructions for postoperative care and follow-up Plan - Discharge Summary New Discharge Prescriptions: New HYDROcodone/APAP 5-325MG [[place] 5-325] 1 each PO Q4HR PRN #20 tab PRN Reason: Moderate Pain Ibuprofen [Motrin] 600 mg PO Q6HR PRN #30 tab PRN Reason: Mild Pain Or Fever >= 100.5 No Action Pnv No.95/Ferrous Fum/Folic AC [ Multivitamin Tablet] 1 each PO DAILY Discharge Medication List Pnv No.95/Ferrous Fum/Folic AC [ Multivitamin Tablet] 1 each PO DAILY [History] HYDROcodone/APAP 5-325MG [[place] 5-325] 1 each PO Q4HR PRN #20 tab 05/18/18 [Rx] Ibuprofen [Motrin] 600 mg PO Q6HR PRN #30 tab 05/18/18 [Rx] Follow up Appointment(s)/Referral(s): Geraldine Sandhu MD [STAFF PHYSICIAN] - 2 Weeks Activity/Diet/Wound Care/Special Instructions: Follow-up in 2 weeks after surgery in the office. Call the office with any concerning signs or symptoms including fever greater than 101, severe abdominal pain, heavy vaginal bleeding, signs of wound infection, increased swelling or redness of the lower extremities, signs of depression. No driving for 2 weeks after surgery. No heavy lifting or vigorous activity until reevaluated in the office. No intercourse for 6 weeks after delivery. Discharge Disposition: HOME SELF-CARE
== END 2018-05-18 13:00 | disposition home or self-care (01) | DRG 766 ==
LOC: FBPOP 21:35 → 4FBP 22:47
PROVIDERS: ADMIT Obstetrics & Gynecology; ATTEND Obstetrics & Gynecology
PROC: 0UL70CZ Occlusion of Bilateral Fallopian Tubes with Extraluminal Device, Open Approach (ICD-10-PCS; 2018-05-16)
PROC: 10D00Z1 Extraction of Products of Conception, Low, Open Approach (ICD-10-PCS; principal; 2018-05-16 01:45)
DX: O34.211 Maternal care for low transverse scar from previous cesarean delivery (principal); Z37.0 Single live birth; O99.334 Smoking (tobacco) complicating childbirth; O76 Abnormality in fetal heart rate and rhythm complicating labor and delivery; F17.200 Nicotine dependence, unspecified, uncomplicated; Z30.2 Encounter for sterilization; Z3A.37 37 weeks gestation of pregnancy; F98.8 Other specified behavioral and emotional disorders with onset usually occurring in childhood and adolescence; Z88.5 Allergy status to narcotic agent; O99.344 Other mental disorders complicating childbirth
CPT/HCPCS: 59025; 85025; 86850; 86900; 86901; 88307; 96360; 99214

== ENCOUNTER 2021-11-16 14:24 | Observation (INO) | payer BC, OTHER ==
[2021-11-16 14:30] VITALS: TEMP 98.4
[2021-11-16 14:46] LABS: Glucose,Whole Blood 81 mg/dL (75-99)
--- NOTE | 2021-11-16 14:47 | ED ---
General Adult HPI - General Chief complaint: Neuro Symptoms/Deficit Stated complaint: left arm numbness Time Seen by Provider: 11/16/21 14:36 Source: patient, family, RN notes reviewed Mode of arrival: ambulatory Limitations: no limitations - History of Present Illness Initial comments: Patient is a pleasant 36-year-old female presenting to the emergency department with left arm numbness. Onset was sudden round 10 PM yesterday. Patient did go to sleep around 20 minutes following this. Patient has had some weakness in her arm that has been persistent since that time, around 10:00. Patient states it is difficult to use. Patient denies loss of sensation. No other area of weakness. No history of similar symptoms previous. No history of involvement of the face or leg. No confusion or speech problems. No visual changes.. No fever. No headache. - Related Data Home Medications Medication Instructions Recorded Confirmed No Known Home Medications 11/16/21 11/16/21 Allergies Allergy/AdvReac Type Severity Reaction Status Date / Time codeine Allergy Rash/Hives Verified 11/16/21 15:14 Review of Systems ROS Statement: Those systems with pertinent positive or pertinent negative responses have been documented in the HPI. ROS Other: All systems not noted in ROS Statement are negative. Constitutional: Denies: fever Eyes: Denies: eye pain ENT: Denies: ear pain Respiratory: Denies: cough Cardiovascular: Denies: chest pain Endocrine: Denies: fatigue Gastrointestinal: Denies: abdominal pain Genitourinary: Denies: dysuria Musculoskeletal: Denies: back pain Skin: Denies: rash Neurological: Reports: as per HPI, weakness. Denies: headache Psychiatric: Denies: anxiety Past Medical History Past Medical History: No Reported History Additional Past Medical History / Comment(s): She states she's had 8 spontaneous vaginal deliveries, she had a [id number] with a full term vaginal delivery tofollow. History of Any Multi-Drug Resistant Organisms: None Reported Past Surgical History: Section Past Anesthesia/Blood Transfusion Reactions: No Reported Reaction Past Psychological History: ADD/ADHD, Anxiety Past Alcohol Use History: None Reported Past Drug Use History: None Reported - Past Family History Mother Family Medical History: No Reported History General Exam Limitations: no limitations General appearance: alert, in no apparent distress Head exam: Present: normocephalic Eye exam: Present: normal appearance, PERRL, EOMI Neck exam: Present: normal inspection, full ROM. Absent: tenderness Respiratory exam: Present: normal lung sounds bilaterally Cardiovascular Exam: Present: regular rate, normal rhythm Expanded Peripheral pulses: 2+: Radial (L) GI/Abdominal exam: Present: soft. Absent: tenderness Extremities exam: Present: normal inspection, full ROM. Absent: tenderness Neurological exam: Present: alert, oriented X3, CN II-XII intact Expanded Neurological exam: Present: protecting the airway Speech: Present: fluid speech Cranial nerves: EOM's Intact: Normal Cerebellar function: Finger to Nose: Normal (Patient states it does seem difficult with left-sided) Sensory exam: Upper Extremity Light Touch: Normal, Lower Extremity Light Touch: Normal Motor strength exam: RUE: 5, LUE: 4 (Weakness is greater of the thumb, index and middle finger), RLE: 5, LLE: 5 Eye Response: (4) open spontaneously Motor Response: (6) obeys commands Verbal Response: (5) oriented Psychiatric exam: Present: normal affect, normal mood Skin exam: Present: normal color Course Vital Signs 11/16/21 11/16/21 11/16/21 14:25 15:04 15:30 Temperature 98.4 F Pulse Rate 94 69 82 Respiratory 18 16 16 Rate Blood Pressure 125/81 111/66 130/87 O2 Sat by Pulse 100 100 97 Oximetry - Reevaluation(s) Reevaluation #1: 11/16/21 14:57 Case was discussed with practitioner Angelique with Dr. Wilkinson, who agrees patient not TPA candidate and they will review films EKG Findings - EKG Comments: EKG Findings:: Sinus rhythm with rate of 66. DC 149. QRS 11. QT 359. QTC 373. Left axis. Low QRS. Q waves V1 V2. No acute ST change. Medical Decision Making - Medical Decision Making Age reevaluated and updated. Patient unchanged. Case discussed with Dr. Gilbert, who will admit coming hospital call. - Lab Data Result diagrams: 11/16/21 14:47 11/16/21 14:47 Lab Results 11/16/21 11/16/21 11/16/21 Range/Units 14:44 14:47 14:47 WBC 11.1 H (3.8-10.6) k/uL RBC 4.41 (3.80-5.40) m/uL Hgb 13.5 (11.4-16.0) gm/dL Hct 40.7 (34.0-46.0) % MCV 92.4 (80.0-100.0) fL MCH 30.7 (25.0-35.0) pg MCHC 33.2 (31.0-37.0) g/dL RDW 13.4 (11.5-15.5) % Plt Count 320 (150-450) k/uL MPV 7.7 Neutrophils % 73 % Lymphocytes % 19 % Monocytes % 4 % Eosinophils % 3 % Basophils % 1 % Neutrophils # 8.1 H (1.3-7.7) k/uL Lymphocytes # 2.1 (1.0-4.8) k/uL Monocytes # 0.4 (0-1.0) k/uL Eosinophils # 0.3 (0-0.7) k/uL Basophils # 0.1 (0-0.2) k/uL PT 10.1 (9.0-12.0) sec INR 0.9 (<1.2) APTT 25.8 (22.0-30.0) sec Sodium (137-145) mmol/L Potassium (3.5-5.1) mmol/L Chloride (98-107) mmol/L Carbon Dioxide (22-30) mmol/L Anion Gap mmol/L BUN (7-17) mg/dL Creatinine (0.52-1.04) mg/dL Est GFR (CKD-EPI)AfAm (>60 ml/min/1.73 sqM) Est GFR (CKD-EPI)NonAf (>60 ml/min/1.73 sqM) Glucose (74-99) mg/dL POC Glucose (mg/dL) 81 (75-99) mg/dL POC Glu Figure Skater ID Deepthi [place] Calcium (8.4-10.2) mg/dL Total Bilirubin (0.2-1.3) mg/dL AST (14-36) U/L ALT (4-34) U/L Alkaline Phosphatase (38-126) U/L Troponin I (0.000-0.034) ng/mL Total Protein (6.3-8.2) g/dL Albumin (3.5-5.0) g/dL 11/16/21 11/16/21 Range/Units 14:47 14:47 WBC (3.8-10.6) k/uL RBC (3.80-5.40) m/uL Hgb (11.4-16.0) gm/dL Hct (34.0-46.0) % MCV (80.0-100.0) fL MCH (25.0-35.0) pg MCHC (31.0-37.0) g/dL RDW (11.5-15.5) % Plt Count (150-450) k/uL MPV Neutrophils % % Lymphocytes % % Monocytes % % Eosinophils % % Basophils % % Neutrophils # (1.3-7.7) k/uL Lymphocytes # (1.0-4.8) k/uL Monocytes # (0-1.0) k/uL Eosinophils # (0-0.7) k/uL Basophils # (0-0.2) k/uL PT (9.0-12.0) sec INR (<1.2) APTT (22.0-30.0) sec Sodium 137 (137-145) mmol/L Potassium 4.0 (3.5-5.1) mmol/L Chloride 107 (98-107) mmol/L Carbon Dioxide 23 (22-30) mmol/L Anion Gap 7 mmol/L BUN 16 (7-17) mg/dL Creatinine 0.90 (0.52-1.04) mg/dL Est GFR (CKD-EPI)AfAm >90 (>60 ml/min/1.73 sqM) Est GFR (CKD-EPI)NonAf 82 (>60 ml/min/1.73 sqM) Glucose 80 (74-99) mg/dL POC Glucose (mg/dL) (75-99) mg/dL POC Glu Figure Skater ID Calcium 9.5 (8.4-10.2) mg/dL Total Bilirubin 0.4 (0.2-1.3) mg/dL AST 23 (14-36) U/L ALT 12 (4-34) U/L Alkaline Phosphatase 59 (38-126) U/L Troponin I <0.012 (0.000-0.034) ng/mL Total Protein 7.1 (6.3-8.2) g/dL Albumin 4.0 (3.5-5.0) g/dL - Radiology Data Radiology results: report reviewed (Computed tomography scan of the brain shows no acute process), image reviewed (Chest x-ray shows no acute process) Disposition Clinical Impression: Arm weakness Disposition: ADMITTED IP TO THIS HOSP Is patient prescribed a controlled substance at d/c from ED?: No Referrals: None,Stated [REFERRING] - 1-2 days Decision Time: 15:39
[2021-11-16 15:05] LABS: Basophils # (A) 0.1 k/uL (0-0.2); Basophils % (A) 1 %; Eosinophils # (A) 0.3 k/uL (0-0.7); Eosinophils % (A) 3 %; HCT 40.7 % (34.0-46.0); HGB 13.5 gm/dL (11.4-16.0); Lymphocytes # (A) 2.1 k/uL (1.0-4.8); Lymphocytes % (A) 19 %; MCH 30.7 pg (25.0-35.0); MCHC 33.2 g/dL (31.0-37.0); MCV 92.4 fL (80.0-100.0); Mean Platelet Volume 7.7; Monocytes # (A) 0.4 k/uL (0-1.0); Monocytes % (A) 4 %; Neutrophils # (A) 8.1 k/uL (1.3-7.7); Neutrophils % (A) 73 %; Platelet Count 320 k/uL (150-450); RBC 4.41 m/uL (3.80-5.40); RDW 13.4 % (11.5-15.5); WBC 11.1 k/uL (3.8-10.6)
--- NOTE | 2021-11-16 15:16 | CT ---
EXAMINATION TYPE: CT brain wo con DATE OF EXAM: 11/16/2021 COMPARISON: None available HISTORY: Left arm numbness since last night. CT DLP: 1109.8 mGycm. Automated Exposure Control for Dose Reduction was Utilized. TECHNIQUE: CT scan of the head is performed without contrast. FINDINGS: Prominent left superior medial frontal extra-axial space measuring up to 13 mm which could represent a prominent sulcus versus an arachnoid cyst without significant mass effect. Otherwise unremarkable m orphology of the cerebral hemispheres, cerebellum and brainstem. No acute intracranial hemorrhage or gross acute cortical infarct. No midline shift, herniation or reena triculomegaly. Unremarkable reis-white matter differentiation, basal cisterns, sella and CP angles. N o gross space-occupying lesion, vasogenic edema or mass effect. Unremarkable orbits. Mucosal thickening of the maxillary sinuses with air-fluid level within the righ t maxillary sinus. Opacified mastoid air cells more on the left side. Unremarkable calvarial bones. IMPRESSION: No acute intracranial hemorrhage or gross acute cortical infarct. No gross space-occupying lesion by this nonenhanced CT scan. Incidental findings as described above.
--- NOTE | 2021-11-16 15:18 | XR ---
EXAMINATION TYPE: XR chest 2V DATE OF EXAM: 11/16/2021 COMPARISON: INDICATION: TECHNIQUE: Frontal and lateral views of the chest are obtained. FINDINGS: The heart size is normal. The pulmonary vasculature is normal. The lungs are clear. Some hyperinflation and increased AP diameter may be compatible with COPD. IMPRESSION: 1. No acute pulmonary process. 2. Correlate for COPD
[2021-11-16 15:19] LABS: INR 0.9 (<1.2); Partial Thromboplastin Time 25.8 sec (22.0-30.0); Prothrombin Time 10.1 sec (9.0-12.0)
[2021-11-16 15:22] LABS: ALT 12 U/L (4-34); AST 23 U/L (14-36); African American GFR (CKD) >90 (>60 ml/min/1.73 sqM); Alkaline Phosphatase 59 U/L (38-126); Anion Gap 7 mmol/L; Blood Urea Nitrogen 16 mg/dL (7-17); Calcium 9.5 mg/dL (8.4-10.2); Carbon Dioxide 23 mmol/L (22-30); Chloride 107 mmol/L (98-107); Glucose 80 mg/dL (74-99); Non-African American GFR(CKD) 82 (>60 ml/min/1.73 sqM); Sodium 137 mmol/L (137-145); Total Bilirubin 0.4 mg/dL (0.2-1.3); Total Protein 7.1 g/dL (6.3-8.2)
--- NOTE | 2021-11-16 15:38 | CT ---
EXAMINATION TYPE: CT angio head neck DATE OF EXAM: 11/16/2021 HISTORY: Left arm numbness since last night. COMPARISON: None available CT DLP: 404.9 mGycm. Automated Exposure Control for Dose Reduction was Utilized. TECHNIQUE: CTA scan of the neck is performed with IV Contrast, patient injected with 65 mL of Isovue 370, axial images are obtained, coronal and sagittal reformatted images are reviewed. 3D reconstruct ed images are created on an independent workstation and reviewed. FINDINGS: Normal caliber and enhancement of the neck arteries and intracranial arteries without significant erik nosis, occlusion, dissection, aneurysm or AV malformation. Patent major intracranial venous sinuses. No intracranial abnormal enhancement. Prominent nasopharyngeal soft tissue, please correlate clinically. Scattered subcentimeter bilateral cervical lymph nodes, nonspecific. Possible subtle right thyroid lobe hypodensity, for correlation [facility] thyroid ultrasound results. Sclerotic area is seen within T5 vertebral body measuring 16mm, suboptimally assessed by this CT scan . Further bone scan assessment can be considered. No bone destruction. IMPRESSION: 1. No acute arterial abnormality, significant stenosis or occlusion is seen in the neck or the intrac ranial arteries. 2. 16 mm sclerotic area within T5 vertebral body without bone destruction, nonspecific. Further bone scan assessment can be considered. Other incidental findings as described above. Considering the patient's age and presentation, further MRI assessment can be considered.
[2021-11-16] MEDS ORDERED: ASPIRIN 325 MG TAB PO STA (15:39)
[2021-11-16] MEDS ORDERED: SODIUM CHLORIDE 0.9% 1,000 ML IV SCH (15:45)
[2021-11-16 18:15] VITALS: BP 106/58; PULSE 81; RESP 17
[2021-11-17] MEDS ORDERED: ASPIRIN 325 MG TAB PO SCH (09:00)
--- NOTE | 2021-11-17 11:48 | P.CNNES ---
History of Present Illness Consult date: 11/16/21 Requesting physician: Eugenio Hansen Reason for Consult: Left arm weakness History of Present Illness: Patient is a 36-year-old female who came to the hospital for evaluation of left wrist drop. Patient's was also present. Patient apparently sat down in the chair with armrests, but she was leaning to the left and her left arm was by her side, tugged between her torso and the armrest. She somehow stayed in that position for about 2.5 hours. When she got up, noticed that her left wrist was weak. She denied any numbness tingling, any slurred speech facial droop problem with the vision or any other symptoms. She came to the ER. Her blood test shows WBC 11.1 hemoglobin 13.5 platelets 320. PT/PTT normal. Chem-20 normal. Troponin negative. Allen virus PCR negative. Computed tomography scan of head showed no acute intracranial hemorrhage or gross acute cortical infarct. No space-occupying lesion. Mucosal thickening of the maxillary sinuses with air fluid level within the right maxillary sinus. Opacified mastoid air cells more on the left side. I personally reviewed computed tomography scan of the head and agree with the findings. CTA of head and neck showed no acute arterial abnormality, significant stenosis or occlusion seen in the neck or the intracranial arteries. Elmer millimeters sclerotic area within the T5 vertebral body without bone distraction, nonspecific. Further bone scan assessment can be considered. Prominent nasopharyngeal soft tissue, please correlate clinically. Scattered subcentimeter bilateral cervical lymph nodes, nonspecific. Chest x-ray showed no acute pulmonary process. Correlate for COPD. EKG shows sinus rhythm. Low QRS voltage is in precordial leads. Patient and her agrees that patient has a habit of sitting with leaning to the left. Patient is positive that she did not sleep while sitting for those 2-1/2 hours. Review of Systems As above in detail. All other 14 point review systems reviewed and un remarkable. Past Medical History Past Medical History: No Reported History Additional Past Medical History / Comment(s): She states she's had 8 spontaneous vaginal deliveries, she had a [id number] with a full term vaginal delivery tofollow. History of Any Multi-Drug Resistant Organisms: None Reported Past Surgical History: Section Past Anesthesia/Blood Transfusion Reactions: No Reported Reaction Past Psychological History: ADD/ADHD, Anxiety Past Alcohol Use History: None Reported Past Drug Use History: None Reported - Past Family History Mother Family Medical History: No Reported History Medications and Allergies Home Medications Medication Instructions Recorded Confirmed Type No Known Home Medications 11/16/21 11/16/21 History Allergies Allergy/AdvReac Type Severity Reaction Status Date / Time codeine Allergy Rash/Hives Verified 11/16/21 15:14 Physical Examination - Vital Signs Vital Signs: Vital Signs Temp Pulse Resp BP Pulse Ox 11/16/21 17:54 81 17 106/58 97 11/16/21 16:54 80 18 111/60 95 11/16/21 16:46 79 14 119/79 95 11/16/21 16:00 82 16 119/70 97 11/16/21 15:30 82 16 130/87 97 11/16/21 15:04 69 16 111/66 100 11/16/21 14:25 98.4 F 94 18 125/81 100 Patient is a middle aged female, in no acute distress. Patient is alert awake oriented to time place and person. Speech and language functions are normal. Attention, concentration and fund of knowledge is taco quate. No aphasia or dysarthria. On cranial examination, pupils are unequal, left pupil is 4 mm, right pupil is 2 mm, both are reactive to light. Patient's visual stone are full on confrontation, extraocular muscles are intact with no nystagmus. Face is symmetric, tongue protrudes to the midline. Palatal elevation and sensation normal, hearing and shoulder shrug normal, facial sensation normal. Shoulder shrug normal. On muscle strength testing, there is left-sided pronation, no drift and the strength is normal in the right arm and both lower limbs distally and proximally. In the left upper limb, patient has only weakness in distal radial innervated muscle, sparing the triceps. The turning sander tender, finger flexor, thumb flexion, thumb adduction are normal. Deep tendon reflexes are symmetric, 2 at the biceps, 1 brachioradialis, 2 at the triceps, 2 at the knees, 1 ankles and plantars downgoing bilaterally. Sensory to touch is decreased in the left superficial radial nerve distribution, on the dorsum of the left thumb and index finger. Cerebellar function showed no ataxia for [id number] testing on the right, but patient has slight ataxia on the left. Tone is decreased in the left hand and bulk of muscles normal. Gait normal. On general examination, there is no carotid bruit or murmur, S1-S2 audible. Abdomen is soft nontender. Chest is clear. Peripheral pulses are present. No edema. Results - Laboratory Findings CBC and BMP: 11/16/21 14:47 11/16/21 14:47 Abnormal Lab Findings: Abnormal Labs 11/16/21 14:47 WBC 11.1 H Neutrophils # 8.1 H Assessment and Plan Assessment: * Left wrist drop, likely due to entrapment of left radial nerve at the radial groove. * Anisocoria, unclear etiology. Plan: * MRI of the brain evaluate for stroke. * In the MRI is negative, patient will be clear for discharge. * Patient recommended to avoid leaning on the left side with arm trapped between the torso and the armrest, or laying on the left side. * Patient may need EMG and nerve conduction of left upper extremity as an outpatient. * Thank you for the consult.
--- NOTE | 2021-11-22 11:41 | P.HPIM ---
History of Present Illness Patient left AGAINST MEDICAL ADVICE before being seen by our service Past Medical History Past Medical History: No Reported History Additional Past Medical History / Comment(s): She states she's had 8 spontaneous vaginal deliveries, she had a [id number] with a full term vaginal delivery tofollow. History of Any Multi-Drug Resistant Organisms: None Reported Past Surgical History: Section Past Anesthesia/Blood Transfusion Reactions: No Reported Reaction Past Psychological History: ADD/ADHD, Anxiety Past Alcohol Use History: None Reported Past Drug Use History: None Reported - Past Family History Mother Family Medical History: No Reported History Medications and Allergies Home Medications Medication Instructions Recorded Confirmed Type No Known Home Medications 11/16/21 11/16/21 History Allergies Allergy/AdvReac Type Severity Reaction Status Date / Time codeine Allergy Rash/Hives Verified 11/16/21 15:14 Results CBC & Chem 7: 11/16/21 14:47 11/16/21 14:47
--- NOTE | 2021-11-22 11:42 | P.DS ---
Providers Date of admission: 11/16/21 15:39 Expected date of discharge: 12/14/21 Attending physician: Lauren Gilbert Consults: 11/16/21 15:40 Consult Physician Urgent Consulting Provider: Lindsay Hussein Consult Reason/Comments: l arm weak Do you want consulting provider notified?: Yes Primary care physician: Ama [facility] Course: left AGAINST MEDICAL ADVICE Patient Condition at Discharge: Undetermined Plan - Discharge Summary New Discharge Prescriptions: No Action No Known Home Medications Discharge Medication List No Known Home Medications 11/16/21 [History] Follow up Appointment(s)/Referral(s): None,Stated [REFERRING] - 1-2 days Discharge Disposition: Left Against Medical Advice
--- NOTE | 2021-11-22 14:10 | ECHOF ---
Referral Reason:Thrombus MEASUREMENTS -------- HEIGHT: 162.6 cm WEIGHT: 76.7 kg BP: 130/87 RVIDd: 3.3 cm (< 3.3) IVSd: 1.2 cm (0.6 - 1.1) LVIDd: 3.3 cm (3.9 - 5.3) LVPWd: 1.1 cm (0.6 - 1.1) IVSs: 1.4 cm LVIDs: 2.4 cm LVPWs: 1.4 cm LAESV Index (A-L): 20.73 ml/m Ao Diam: 3.0 cm (2.0 - 3.7) AV Cusp: 2.3 cm (1.5 - 2.6) LA Diam: 2.5 cm (2.7 - 3.8) MV EXCURSION: 15.792 mm (> 18.000) MV EF SLOPE: 49 mm/s (70 - 150) EPSS: 0.6 cm MV E Lio: 1.11 m/s MV DecT: 199 ms MV A Lio: 0.64 m/s MV E/A Ratio: 1.74 RAP: 5.00 mmHg RVSP: 19.20 mmHg FINDINGS -------- Sinus rhythm. This was a technically adequate study. The left ventricular size is normal. There is mild concentric left ventricular hypertrophy. Overa ll left ventricular systolic function is normal with, an EF between 55 - 60 %. The diastolic fillin g pattern is normal for the age of the patient 12.47. The right ventricle is mildly enlarged. Normal LA size by volume 22+/-6 ml/m2. The right atrial size is normal. Interatrial and interventricular septum intact. The aortic valve is trileaflet, and appears structurally normal. No aortic stenosis or regurgitation. The mitral valve is normal. No mitral regurgitation. The tricuspid valve appears structurally normal. Mild tricuspid regurgitation present. Right vent ricular systolic pressure is normal at < 35 mmHg. The right ventricular systolic pressure, as measu red by Doppler, is 19.20mmHg. There is no pulmonic regurgitation present. The aortic root size is normal. IVC Not well visulized. There is no pericardial effusion. CONCLUSIONS -------- 1. There is mild concentric left ventricular hypertrophy. 2. Overall left ventricular systolic function is normal with, an EF between 55 - 60 %. 3. The right ventricle is mildly enlarged. 4. The aortic valve is trileaflet, and appears structurally normal. No aortic stenosis or regurgitati on. 5. Mild tricuspid regurgitation present. NAIL SPECIALIST: Khalida Perez RDCS
== END 2021-11-16 18:42 | disposition left against medical advice (07) ==
LOC: EC 14:24 → 6NMEDSUR 15:39
PROVIDERS: ADMIT Internal Medicine; ATTEND Internal Medicine
DX: M21.332 Wrist drop, left wrist (principal); H57.02 Anisocoria; F41.9 Anxiety disorder, unspecified; F90.9 Attention-deficit hyperactivity disorder, unspecified type; Z20.822 Contact with and (suspected) exposure to COVID-19; Z88.5 Allergy status to narcotic agent; Z98.891 History of uterine scar from previous surgery; Z53.29 Procedure and treatment not carried out because of patient's decision for other reasons
CPT/HCPCS: 96360; 96361; 99285; 36415; 93005; 93306; 80053; 84484; 85025; 85610; 85730; 87635; 71046; 70496; 70450; 70498; G0378; Q9967